=== PATIENT | male | born 1940 | race African-American/Black ===

== ENCOUNTER 2024-05-24 22:09 | Emergency (ER) | payer MEDICARE ==
[~2024-05-24] VITALS: Ht 175.3 cm; Wt 76.0 kg
[2024-05-24 22:14] VITALS: BP 138/93; PULSE 83; RESP 18; TEMP 36.6; O2SAT 99
[2024-05-24 23:57] LABS: HEMATOCRIT. 28.8 % (42.0-52.0); HEMOGLOBIN. 9.6 g/dL (14.0-18.0); MEAN CORPUSCULAR HEMOGLOBIN 30.5 pg (28.0-32.0); MEAN CORPUSCULAR HGB CONC 33.1 g/dL (31.0-37.0); MEAN CORPUSCULAR VOLUME 92.1 fL (80.0-94.0); MEAN PLATELET VOLUME 6.5 fl (7.4-10.4); PLATELET 201 x1000/uL (130-400); RED BLOOD CELL COUNT 3.13 mill/uL (4.7-6.1); RED CELL DISTRIBUTION WIDTH 19.2 % (11.6-14.6); WHITE BLOOD COUNT 6.6 x1000/uL (4.5-11.0)
[2024-05-25 00:05] LABS: CHLORIDE 104 mEq/L (98-107); POTASSIUM 3.7 mEq/L (3.5-5.1); SODIUM 138 mEq/L (136-145)
[2024-05-25 00:06] LABS: CARBON DIOXIDE 27 mEq/L (21-32); INR 1.2; PARTIAL THROMBOPLASTIN TIME 40.3 sec (23.4-31.0)
[2024-05-25 00:07] LABS: CALCIUM 9.4 mg/dL (8.7-10.4)
[2024-05-25 00:11] LABS: CREATININE 3.5 mg/dL (0.6-1.3); GLUCOSE 74 mg/dL (70-105); UREA NITROGEN BLOOD 17 mg/dL (9-23)
[2024-05-25 00:14] LABS: TROPONIN I HIGH SENSITIVITY 20 ng/L (3.0-53)
[2024-05-25 00:17] LABS: DIFFERENTIAL COMMENT 1
[2024-05-25 00:18] LABS: ETHANOL BLOOD < 10 mg/dL (<10)
[2024-05-25 06:30] LABS: PLATELET ESTIMATE NORMAL
[2024-05-30] MEDS ORDERED: PSYL0.4C2 MT (12:01)
[2024-05-30] MEDS ORDERED: CARV12.545 MT (12:01)
[2024-05-30] MEDS ORDERED: FINA5TAB11 MT (12:01)
[2024-05-30] MEDS ORDERED: HYDR-4001 MT (12:01)
[2024-05-30] MEDS ORDERED: LEVO50TA8 MT (12:01)
[2024-05-30] MEDS ORDERED: DIPH25CA83 PO (12:01)
[2024-05-30] MEDS ORDERED: B12/1TAB MT (12:01)
[2024-05-30] MEDS ORDERED: TAMS-11 MT (12:01)
[2024-05-30] MEDS ORDERED: GABA-529 MT (12:01)
[2024-05-30] MEDS ORDERED: GLIP10TA17 MT (12:01)
[2024-05-30] MEDS ORDERED: AMLO5TAB88 MT (12:01)
[2024-05-30] MEDS ORDERED: DEXL60CA3 MT (12:01)
[2024-05-30] MEDS ORDERED: SOTA80TA MT (12:01)
[2024-05-30] MEDS ORDERED: TERB250T88 MT (12:01)
[2024-05-30] MEDS ORDERED: MELA5TAB21 MT (12:01)
[2024-05-30] MEDS ORDERED: FURO80TA3 MT (12:01)
[2024-05-30] MEDS ORDERED: ATOR-2 MT (12:01)
[2024-05-30] MEDS ORDERED: EVOL140P3 SQ (12:01)
[2024-05-30] MEDS ORDERED: ZINC30CA PO (12:01)
[2024-05-30] MEDS ORDERED: INSLIS SUBCUT (12:01)
[2024-05-30] MEDS ORDERED: SEVE800T8 MT (12:01)
[2024-05-30] MEDS ORDERED: CLOP75TA33 MT (12:01)
[2024-05-30] MEDS ORDERED: INSU100V36 SQ (12:01)
[2024-05-30] MEDS ORDERED: MULT-1021 MT (12:01)
== END 2024-05-25 03:23 | disposition home or self-care (01) ==
LOC: ER 22:09
DX: E11.649 Type 2 diabetes mellitus with hypoglycemia without coma (principal); E11.22 Type 2 diabetes mellitus with diabetic chronic kidney disease; R41.82 Altered mental status, unspecified; E03.9 Hypothyroidism, unspecified; N18.6 End stage renal disease; Z79.4 Long term (current) use of insulin; Z95.0 Presence of cardiac pacemaker; Z95.2 Presence of prosthetic heart valve; Z98.890 Other specified postprocedural states; Z99.2 Dependence on renal dialysis
CPT/HCPCS: 36415; 71045; 80048; 80320; 82962; 83880; 84484; 85025; 93005; 99285; G0480